=== PATIENT | male | born 1995 | race Caucasian/White ===

== ENCOUNTER 2017-05-08 08:59 | Emergency (ER) | payer MEDICAID ==
[~2017-05-08] VITALS: Ht 177.8 cm; Wt 55.8 kg
[2017-05-08 09:00] VITALS: BP 154/96
== END 2017-05-08 09:53 | disposition home or self-care (01) ==
LOC: ED 09:45
DX: K02.9 Dental caries, unspecified (principal); F17.200 Nicotine dependence, unspecified, uncomplicated
CPT/HCPCS: 99283

== ENCOUNTER 2017-12-11 18:23 | Emergency (ER) | payer MEDICAID ==
[~2017-12-11] VITALS: Ht 175.3 cm; Wt 60.8 kg
[2017-12-11] MEDS ORDERED: ONDANSETRON ODT 4 MG PO ONE (19:00)
[2017-12-11] MEDS ORDERED: HYDROcodone/APAP 5/325 TABLET PO PRN (19:00)
[2017-12-11] MEDS ORDERED: KETOROLAC 30 MG/1 ML IM ONE (19:00)
[2017-12-11] MEDS ORDERED: CEFTRIAXONE 250 MG IM ONE (19:00)
[2017-12-11] MEDS ORDERED: AZITHROMYCIN 500 MG TABLET PO ONE (19:00)
[2017-12-11] MEDS ORDERED: CEFTRIAXONE 250 MG ONE (19:16)
[2017-12-11] MEDS ORDERED: ONDANSETRON ODT 4 MG ONE (19:16)
[2017-12-11] MEDS ORDERED: KETOROLAC 30 MG/1 ML ONE (19:16)
[2017-12-11] MEDS ORDERED: LIDOCAINE-MPF 1%, 5ML ONE (19:17)
[2017-12-11] MEDS ORDERED: HYDROcodone/APAP 5/325 TABLET ONE (19:17)
[2017-12-11 19:42] LABS: CULTURE INDICATED? YES; MICROSCOPIC INDICATED
[2017-12-11] MEDS ORDERED: AZITHROMYCIN 500 MG TABLET ONE (19:58)
[2017-12-11 20:22] VITALS: BP 122/64
== END 2017-12-11 20:24 | disposition home or self-care (01) ==
LOC: ED 20:18
DX: A56.19 Other chlamydial genitourinary infection (principal); A56.01 Chlamydial cystitis and urethritis; N43.3 Hydrocele, unspecified; I86.1 Scrotal varices; F17.210 Nicotine dependence, cigarettes, uncomplicated
CPT/HCPCS: 76870; 81001; 87086; 87491; 87591; 96372; 99285; J0696; J1885; Q0162

== ENCOUNTER 2018-06-24 19:04 | Emergency (ER) | payer MEDICAID ==
[~2018-06-24] VITALS: Ht 175.3 cm; Wt 60.4 kg
[2018-06-24 19:19] VITALS: BP 121/79
== END 2018-06-24 19:50 | disposition home or self-care (01) ==
LOC: ED 19:30
DX: K08.89 Other specified disorders of teeth and supporting structures (principal)
CPT/HCPCS: 99283

== ENCOUNTER 2018-10-02 13:38 | Emergency (ER) | payer MEDICAID ==
[~2018-10-02] VITALS: Ht 175.3 cm; Wt 63.8 kg
[2018-10-02 13:43] VITALS: BP 130/85
--- NOTE | 2018-10-02 14:22 | NUR ---
Patient/Caregiver given discharge instructions and they have confirmed that they understand the instructions. Patient ambulatory with steady gait. PT LEFT WITH ALL PERSONAL BELONGINGS.
== END 2018-10-02 14:24 | disposition home or self-care (01) ==
LOC: ED 14:10
DX: K02.9 Dental caries, unspecified (principal); K08.89 Other specified disorders of teeth and supporting structures
CPT/HCPCS: 99283

== ENCOUNTER 2019-02-17 22:55 | Emergency (ER) | payer MEDICAID ==
[~2019-02-17] VITALS: Ht 177.8 cm; Wt 68.9 kg
[2019-02-17 22:58] VITALS: BP 143/72
[2019-02-17] MEDS ORDERED: LIDOCAINE 1%-EPI 1:100K, 20ML SQ ONE (23:30)
[2019-02-17] MEDS ORDERED: LIDOCAINE-MPF 1%, 5ML INFIL ONE (23:30)
== END 2019-02-17 23:44 | disposition home or self-care (01) ==
LOC: ED 23:38
DX: K04.7 Periapical abscess without sinus (principal)
CPT/HCPCS: 41800; 99283

== ENCOUNTER 2019-04-12 10:46 | Emergency (ER) | payer MEDICAID ==
[~2019-04-12] VITALS: Ht 177.8 cm; Wt 68.0 kg
[2019-04-12 10:57] VITALS: BP 127/76
--- NOTE | 2019-04-12 11:15 | NUR ---
Patient to room; vss. Awaiting orders.
[2019-04-12] MEDS ORDERED: IBUPROFEN 800 MG TABLET ONE (11:26)
[2019-04-12] MEDS ORDERED: IBUPROFEN 800 MG TABLET PO ONE (11:30)
== END 2019-04-12 11:37 | disposition home or self-care (01) ==
LOC: ED 11:24
DX: K02.9 Dental caries, unspecified (principal); F17.200 Nicotine dependence, unspecified, uncomplicated
CPT/HCPCS: 99283

== ENCOUNTER 2020-02-19 14:19 | Emergency (ER) | payer MEDICAID ==
[~2020-02-19] VITALS: Ht 177.8 cm; Wt 69.3 kg
[2020-02-19 14:21] VITALS: BP 136/85
--- NOTE | 2020-02-19 14:41 | NUR ---
LEFT LOWER MOUTH TOOTH ABSCESS X 3 DAY WITH MIN-MODERATE SWELLING AFEBRILE, NO THROAT INVOLVEMENT
== END 2020-02-19 15:20 ==
LOC: ED 15:03
DX: K02.9 Dental caries, unspecified (principal); K08.89 Other specified disorders of teeth and supporting structures
CPT/HCPCS: 99283

== ENCOUNTER 2021-03-01 20:31 | Emergency (ER) | payer MEDICAID ==
[~2021-03-01] VITALS: Ht 177.8 cm; Wt 59.7 kg
[2021-03-01] MEDS ORDERED: LIDOCAINE-MPF 1%, 5ML ONE (21:54)
[2021-03-01] MEDS ORDERED: HYDROcodone/APAP 5/325 TABLET ONE (21:55)
[2021-03-01] MEDS ORDERED: LIDOCAINE 1%, 10ML INFIL ONE (22:00)
[2021-03-01] MEDS ORDERED: HYDROcodone/APAP 5/325 TABLET PO ONE (22:00)
[2021-03-01] MEDS ORDERED: BUPIVACAINE 0.25% ONE (22:05)
[2021-03-01 22:24] VITALS: BP 132/89
[2021-03-01] MEDS ORDERED: BUPIVACAINE 0.25% INFIL ONE (22:30)
== END 2021-03-01 22:26 | disposition home or self-care (01) ==
LOC: ED 22:20
DX: K02.9 Dental caries, unspecified (principal); K08.89 Other specified disorders of teeth and supporting structures
CPT/HCPCS: 64400; 99284; J3490

== ENCOUNTER 2021-03-31 22:35 | Emergency (ER) | payer MEDICAID ==
[~2021-03-31] VITALS: Ht 175.3 cm; Wt 59.0 kg
[2021-03-31 22:37] VITALS: BP 133/82
--- NOTE | 2021-03-31 23:15 | NUR ---
Patient presents to ED C/O of lower abdominal pain starting this AM. Patient states "he called off of work this AM and now needs a doctors note per his job." Patient states "I wouldn't be here if I didn't need a doctors note." Denies N/V/D/ dysuria.
--- NOTE | 2021-03-31 23:17 | NUR ---
Patient refusing urine sample at this time. ERP aware.
[2021-03-31 23:19] LABS: BASOPHILS % (AUTO) 1 % (0-1); EOSINOPHILS % (AUTO) 0 % (1-7); LYMPHOCYTES % (AUTO) 20 % (22-44); MEAN CORPUSCULAR HGB CONC 34.7 g/dL (33.2-36.2); MONOCYTES % (AUTO) 5 % (2-9); NEUTROPHILS % (AUTO) 74 % (42-75); PLATELET COUNT 122 x10^3/uL (130-400); RED BLOOD COUNT 5.25 x10^6/uL (4.38-5.82); RED CELL DISTRIBUTION WIDTH 12.7 % (9.4-14.8)
[2021-03-31 23:31] LABS: ALANINE AMINOTRANSFERASE 24 U/L (12-78); ALBUMIN 4.3 g/dL (3.4-5.0); ANION GAP 4 mmol/L (5-15); CALCIUM 9.1 mg/dL (8.5-10.1); CHLORIDE 106 mmol/L (98-107); CREATININE 0.95 mg/dL (0.7-1.3)
[2021-03-31 23:33] LABS: ALKALINE PHOSPHATASE 73 U/L (45-117); BILIRUBIN,TOTAL 1.1 mg/dL (0.2-1.0); TOTAL PROTEIN 7.9 g/dL (6.4-8.2)
--- NOTE | 2021-04-01 00:15 | NUR ---
Patient given discharge instructions and they have confirmed that they understand the instructions. Patient ambulatory with steady gait. NAD, all questions answered appropriately, denies additional needs at this time. No personal belongings left in room after discharge.
== END 2021-04-01 00:17 | disposition home or self-care (01) ==
LOC: ED 23:17
DX: R10.33 Periumbilical pain (principal); F17.210 Nicotine dependence, cigarettes, uncomplicated
CPT/HCPCS: 36415; 80053; 83690; 85025; 99406

== ENCOUNTER 2021-04-05 23:02 | Emergency (ER) | payer MEDICAID ==
[~2021-04-05] VITALS: Ht 175.3 cm; Wt 59.3 kg
[2021-04-05 23:04] VITALS: BP 120/65
--- NOTE | 2021-04-06 00:20 | NUR ---
PT CAME INTO ED FOR A RIGHT SWOLLEN AND PAINFUL ANKLE. REPORTS "I KICKED SOMETHING LAST NIGHT" AND STATES IT STARTED HURTING TODAY. CMS INTACT, SWELLING NOTED, NAD, RESTING ON GURNEY, MONITORING IN PLACE, BED IN LOWEST, RAILS ENGAGED, CALL LIGHT ON LAP, WCTM. PRUDENCE BARRAZA AT BS FOR EVAL AND POC.
--- NOTE | 2021-04-06 00:56 | NUR ---
Report to SHANTEL OLSON
--- NOTE | 2021-04-06 02:38 | NUR ---
PT ELOPED FROM ROOM AT THIS TIME. STATES HE DID NOT WANT TO WAIT FOR HIS XRAY RESULTS THEY WERE TAKING MULTIPLE HOURS. PT AMBULATORY WITH A SMOOTH AND STEADY GAIT.
== END 2021-04-06 02:42 | disposition left against medical advice (07) ==
LOC: ED 23:07
DX: M25.571 Pain in right ankle and joints of right foot (principal); F17.200 Nicotine dependence, unspecified, uncomplicated
CPT/HCPCS: 99284